=== PATIENT | male | born 2000 | race Caucasian/White ===

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

== ENCOUNTER 2020-08-19 09:48 | Emergency (ER) | payer BC ==
[~2020-08-19] VITALS: Ht 190.5 cm; Wt 68.1 kg
[2020-08-19 09:57] VITALS: BP 128/66
--- NOTE | 2020-08-19 10:04 | PHYS DOC ---
Past History Past Medical History: Asthma Past Surgical History: No Surgical History Smoking: Non-smoker Alcohol Use: None Drug Use: None Adult General HPI HPI Patient is a 19-year-old male with past history of asthma presents emergency department for new onset of nausea and vomiting. Patient states that he was tested positive for influenza a week and half ago and since that time has been having mild intermittent flulike illness with fatigue, muscle aches and subject iqra fevers. Also notes that during that time was having episodes of nausea and vomiting. Patient states this is improved until last night when he had 6 episodes of nonbloody nonbilious vomiting. Not associate with any abdominal pain, diarrhea, chest pain, shortness of breath Review of Systems Review of Systems Constitutional: Denies fever or chills [] Eyes: Denies change in visual acuity, redness, or eye pain [] HENT: Denies nasal congestion or sore throat [] Respiratory: Denies cough or shortness of breath [] Cardiovascular: No additional information not addressed in HPI [] GI: Denies abdominal pain, nausea, vomiting, bloody stools or diarrhea [] : Denies dysuria or hematuria [] Musculoskeletal: Denies back pain or joint pain [] Integument: Denies rash or skin lesions [] Neurologic: Denies headache, focal weakness or sensory changes [] Endocrine: Denies polyuria or polydipsia [] All other systems were reviewed and found to be within normal limits, except as documented in this note. Allergies Allergies Allergies Coded Allergies Type Severity Reaction Last Updated Verified aspirin Allergy Unknown 01/12/17 Yes citric acid Allergy Unknown 01/12/17 Yes sodium bicarbonate Allergy Unknown 01/12/17 Yes Physical Exam Physical Exam Constitutional: Well developed, well nourished, no acute distress, non-toxic appearance. [] HENT: Normocephalic, atraumatic, bilateral external ears normal, oropharynx moist, no oral exudates, nose normal. [] Eyes: PERRLA, EOMI, conjunctiva normal, no discharge. [] Neck: Normal range of motion, no tenderness, supple, no stridor. [] Cardiovascular:Heart rate regular rhythm, no murmur [] Lungs & Thorax: Bilateral breath sounds clear to auscultation [] Abdomen: Bowel sounds normal, soft, no tenderness, no masses, no pulsatile ma sses. [] Skin: Warm, dry, no erythema, no rash. [] Back: No tenderness, no CVA tenderness. [] Extremities: No tenderness, no cyanosis, no clubbing, ROM intact, no edema. [] Neurologic: Alert and oriented X 3, normal motor function, normal sensory function, no focal deficits noted. [] Psychologic: Affect normal, judgement normal, mood normal. [] EKG EKG [] Radiology/Procedures Radiology/Procedures [] Heart Score Risk Factors: Risk Factors: DM, Current or recent (<one month) smoker, HTN, HLP, family history of CAD, obesity. Risk Scores: Risk Factors: DM, Current or recent (<one month) smoker, HTN, HLP, family history of CAD, obesity. Course & Med Decision Making Course & Med Decision Making Pertinent Labs and Imaging studies reviewed. (See chart for details) 89-year-old male presenting to emergency department new onset of vomiting without any fever or abdominal pain this was consistent with an acute gastroenteritis. At this time will obtain labs ensure there is no other significant underlying etiology and reevaluate. Dragon Disclaimer Dragon Disclaimer This electronic medical record was generated, in whole or in part, using a voice recognition dictation system. Departure Departure: Impression: Primary Impression: Gastritis Disposition: 01 DC HOME SELF CARE/HOMELESS Condition: GOOD Referrals: PRACHI GIBSON (PCP) Patient Instructions: Gastritis, Adult Additional Instructions: EMERGENCY DEPARTMENT GENERAL DISCHARGE INSTRUCTIONS Thank you for coming to [facility] Emergency Department (ED) today and trusting us with you care. We trust that you had a positive experience in our Emergency Department. If you wish to speak to the department management, you may call the Director at [phone]. YOUR FOLLOW UP INSTRUCTIONS ARE FOLLOWS: 1. Do you have a private Doctor? If you do not have a private doctor, please ask for a resource list of physicians or clinics that may be able to assist you with follow up care. 2. The Emergency Physicain has interpreted your x-rays. The X-Ray specialist will also review them. If there is a change in the findings, you will be notified in 48 hours when at all possible. 3. A lab test or culture has been done, your results will be reviewed and you will be notified if you need a change in treatment. ADDITIONAL INSTRUCTIONS AND INFORMATION: 1. Your care today has been supervised by a physician who is specially trained in emergency care. Many problems require more than one evaluation for a complete diagnosis and treatment. We recommend that you schedule your follow up appointment as recommended to ensure complete treatment of you illness or injury. If you are unable to obtain follow up care and continue to have a problem, or if your condition worsens, we recommend that you return to the ED. 2. We are not able to safely determine your condition over the phone nor are we able to give sound medical advice over the phone. For these safety reasons, if you call for medical advice we will ask you to come to the ED for further evaluation. 3. If you have any questions regarding these discharge instructions please call the ED at [phone]. SAFETY INFORMATION: In the interest of safety, wellness, and injury prevention; we encourage you to wear your sealbelt, if you smoke; quite smoking, and we encourage family to use a pr otective helmet for bicycling and other sporting events that present an increased risk for head injury. IF YOUR SYMPTOMS WORSEN OR NEW SYMPTOMS DEVELOP, OR YOU HAVE CONCERNS ABOUT YOUR CONDITION; OR IF YOUR CONDITION WORSENS WHILE YOU ARE WAITING FOR YOUR FOLLOW UP APPOINTMENT; EITHER CONTACT YOUR PRIMARY CARE DOCTOR, THE PHYSICIAN WHOSE NAME AND NUMBER YOU WERE GIVEN, OR RETURN TO THE ED IMMEDIATELY. Scripts Ondansetron Hcl (ZOFRAN) 4 Mg Tablet 1 TAB PO PRN Q6HRS PRN for NAUSEA, #6 TAB Prov: JACK PADRON MD 08/19/20 JACK PADRON MD Aug 19, 2020 10:03
[2020-08-19] MEDS ORDERED: ONDANSETRON PF 4 MG/2 ML VIAL. IVP ONE (10:15)
[2020-08-19] MEDS ORDERED: IV NORMAL SALINE 1,000ML 1,000 ML IV SCH (10:15)
[2020-08-19] MEDS ORDERED: LIDO:MAALOX 1:1 20 ML SINGLE DOSE. PO ONE (10:15)
[2020-08-19 10:32] LABS: BASO % 1 % (0-3); EOS % 1 % (0-3); HEMATOCRIT 41.8 % (39.0-53.0); HEMOGLOBIN 14.1 g/dL (13.0-17.5); LYMPH # 0.9 x10^3/uL (1.0-4.8); LYMPH % 15 % (24-48); MEAN CORPUSCULAR HEMOGLOBIN 29 pg (25-35); MEAN CORPUSCULAR HGB CONC 34 g/dL (31-37); MEAN CORPUSCULAR VOLUME 85 fL (79-100); MONO # 0.3 x10^3/uL (0.0-1.1); MONO % 5 % (0-9); NEUT # 4.6 x10^3uL (1.8-7.7); NEUT % 79 % (31-73); PLATELET COUNT 259 x10^3/uL (140-400); RED BLOOD COUNT 4.91 x10^6/uL (4.30-5.70); RED CELL DISTRIBUTION WIDTH 12.8 % (11.5-14.5); WHITE BLOOD COUNT 5.8 x10^3/uL (4.0-11.0)
[2020-08-19 10:39] LABS: CALCIUM 8.8 mg/dL (8.5-10.1); CREATININE 1.1 mg/dL (0.7-1.3); GFR 86.2; POTASSIUM 4.1 mmol/L (3.5-5.1)
[2020-08-19 10:46] LABS: ALBUMIN 4.4 g/dL (3.4-5.0); ALBUMIN/GLOBULIN RATIO 1.2 (1.0-1.7); TOTAL BILIRUBIN 0.7 mg/dL (0.2-1.0); TOTAL PROTEIN 8.2 g/dL (6.4-8.2)
[2020-08-19] MEDS ORDERED: ONDA4TAB7 PO (11:17)
== END 2020-08-19 11:26 | disposition home or self-care (01) ==
LOC: ER 09:48
DX: K29.70 Gastritis, unspecified, without bleeding (principal); J45.909 Unspecified asthma, uncomplicated; Z88.8 Allergy status to other drugs, medicaments and biological substances; Z88.6 Allergy status to analgesic agent
CPT/HCPCS: 36415; 80053; 82550; 85025; 96361; 96374; 99283; J2405; J7030

== ENCOUNTER 2020-10-22 16:34 | Emergency (ER) | payer BC ==
[~2020-10-22] VITALS: Ht 190.5 cm; Wt 68.2 kg
[~2020-10-22 16:34] MED LIST: ONDA4TAB7 PO
[2020-10-22] MEDS ORDERED: IV NORMAL SALINE 1,000ML 1,000 ML IV ONE ×2 (17:15→19:15)
--- NOTE | 2020-10-22 17:31 | EKG ---
[address] [address] Test Date: 2020-10-22 Test Time: 17:21:16 Pat Name: SOBEIDA BERGMAN Department: Room: Gender: M Quality Engineer Medical Device: SACHA : 2000 Requested By: CESAR CALDERÓN Order Number: [id number] Reading MD: Measurements Intervals Maud Rate: 101 P: 26 IN: 158 QRS: 72 QRSD: 88 T: 53 QT: 304 QTc: 395 Interpretive Statements SINUS TACHYCARDIA NO SPECIFIC ECG ABNORMALITIES RI6.02 No previous ECG available for comparison
[2020-10-22 18:01] LABS: BASO % 0 % (0-3); EOS # 0.1 x10^3/uL (0.0-0.7); EOS % 1 % (0-3); HEMATOCRIT 42.5 % (39.0-53.0); HEMOGLOBIN 14.5 g/dL (13.0-17.5); LYMPH # 0.7 x10^3/uL (1.0-4.8); LYMPH % 5 % (24-48); MEAN CORPUSCULAR HEMOGLOBIN 30 pg (25-35); MEAN CORPUSCULAR HGB CONC 34 g/dL (31-37); MEAN CORPUSCULAR VOLUME 87 fL (79-100); MONO # 0.7 x10^3/uL (0.0-1.1); MONO % 5 % (0-9); NEUT # 13.1 x10^3uL (1.8-7.7); NEUT % 90 % (31-73); PLATELET COUNT 209 x10^3/uL (140-400); RED BLOOD COUNT 4.88 x10^6/uL (4.30-5.70); RED CELL DISTRIBUTION WIDTH 13.4 % (11.5-14.5); WHITE BLOOD COUNT 14.7 x10^3/uL (4.0-11.0)
--- NOTE | 2020-10-22 18:05 | RAD ---
EXAM: CT HEAD WITHOUT CONTRAST. HISTORY: Fall, trauma. TECHNIQUE: Computed tomography of the head was performed without intravenous contrast. One or more of the following individualized dose reduction techniques were utilized for this examination: 1. Automated exposure control. 2. Adjustment of the mA and/or kV according to patient size. 3. Use of iterative reconstruction technique. COMPARISON: None. FINDINGS: There is no intracranial hemorrhage. Brown-white differentiation is preserved. The ventricle s are normal in size and position. The visualized paranasal sinuses appear clear. The orbits are unremarkable. The temporal bones are un remarkable. The calvarium reveals no suspicious lesions. IMPRESSION: 1. No acute intracranial findings. Electronically signed by: Angelique Rabago MD (10/22/2020 6:03 PM) [facility]
--- NOTE | 2020-10-22 18:05 | RAD ---
EXAM: CHEST ONE VIEW. HISTORY: Shortness of breath. COMPARISON: None. FINDINGS: A frontal view of the chest is obtained. There are no confluent infiltrates. There is no pneumothorax or pleural effusion. The heart is not en larged. There is a mild thoracic dextrocurvature. IMPRESSION: 1. No confluent infiltrates. Electronically signed by: Angelique Rabago MD (10/22/2020 6:02 PM) [facility]
[2020-10-22 18:06] LABS: BILIRUBIN,URINE NEG (NEG); CLARITY,URINE CLEAR; COLOR,URINE STRAW; GLUCOSE,URINE NEG (NEG)
[2020-10-22 18:07] LABS: BACTERIA,URINE 0 /HPF (0-FEW); NITRITE,URINE NEG (NEG); RBC,URINE 0 /HPF (0-2); UROBILINOGEN,URINE 0.2 mg/dL (0.2 mg/dL); WBC,URINE 0 /HPF (0-4)
[2020-10-22 18:08] LABS: CALCIUM 8.9 mg/dL (8.5-10.1); CREATININE 1.1 mg/dL (0.7-1.3); GFR 86.2; POTASSIUM 3.8 mmol/L (3.5-5.1)
[2020-10-22 18:14] LABS: ALBUMIN 4.7 g/dL (3.4-5.0); ALBUMIN/GLOBULIN RATIO 1.3 (1.0-1.7); TOTAL BILIRUBIN 0.8 mg/dL (0.2-1.0); TOTAL PROTEIN 8.3 g/dL (6.4-8.2)
--- NOTE | 2020-10-22 18:47 | PHYS DOC ---
Past History Past Medical History: GERD, Migraines (CESAR CALDERÓN APRN) Past Surgical History: No Surgical History (CESAR CALDERÓN APRN) Smoking: Non-smoker Alcohol Use: None Drug Use: None (CESAR CALDERÓN APRN) General Adult EDM: Chief Complaint: FATIGUE HPI: HPI: Patient is a 19-year-old male who presents with fever, cough, shortness of breath, headache and 2 syncopal episodes at work. Patient states that he was at work today when he was climbing down some stairs and had a syncopal episode. Patient states that his coworker said he missed the last 3 stairs and fell to the ground. Witnessed denies patient hitting his head. Patient states he did lose consciousness. Patient states he felt weak and fell 1 other time at work as well. Patient denies losing consciousness at that time. Patient has a history of migraines. Patient reports taking his migraine medication this morning before work. Denies taking anything else for pain or fever. Patient has history of migraines, GERD. (CESAR CALDERÓN APRN) Review of Systems: Review of Systems: Constitutional: Denies fever or chills Eyes: Reports some blurry vision HENT: Denies nasal congestion or sore throat Respiratory: Reports nonproductive cough and shortness of breath Cardiovascular: Denies chest pain or edema GI: Denies abdominal pain, nausea, vomiting, bloody stools or diarrhea : Denies dysuria Musculoskeletal: Denies back pain or joint pain Integument: Denies rash Neurologic: Reports headache, denies focal weakness or sensory changes Endocrine: Denies polyuria or polydipsia Lymphatic: Denies swollen glands Psychiatric: Denies depression or anxiety (CESAR CALDERÓN APRN) Current Medications: Current Meds: Current Medications Medications (Trade) Dose Ordered Sig/Guy Start Time Stop Time Status Last Admin Dose Admin Sodium Chloride 1,000 ml @ 1,000 mls/hr 1X ONCE 10/22/20 17:15 10/22/20 18:14 DC 10/22/20 17:15 1,000 MLS/HR (CESAR CALDERÓN APRN) Allergies: Allergies: Allergies Coded Allergies Type Severity Reaction Last Updated Verified Penicillins Allergy Unknown 08/19/20 Yes aspirin Allergy Unknown 01/12/17 Yes citric acid Allergy Unknown 01/12/17 Yes sodium bicarbonate Allergy Unknown 01/12/17 Yes (CESAR CALDERÓN VICE PRESIDENT UNDERWRITING) Physical Exam: PE: Constitutional: Well developed, well nourished, no acute distress, non-toxic appearance. [] HENT: Normocephalic, atraumatic, bilateral external ears normal, oropharynx moist, no oral exudates, nose normal. [] Eyes: PERRLA, EOMI, conjunctiva normal, no discharge. [] Neck: Normal range of motion, no tenderness, supple, no stridor. [] Cardiovascular: Sinus tachycardia, no murmur [] Lungs & Thorax: Bilateral breath sounds clear to auscultation [] Abdomen: Bowel sounds normal, soft, no tenderness, no masses, no pulsatile masses. [] Skin: Warm, dry, no erythema, no rash. [] Back: No tenderness, no CVA tenderness. [] Extremities: No tenderness, no cyanosis, no clubbing, ROM intact, no edema. [] Neurologic: Alert and oriented X 3, normal motor function, normal sensory function, no focal deficits noted. [] Psychologic: Affect normal, judgement normal, mood normal. [] (CESAR CALDERÓN VICE PRESIDENT UNDERWRITING) Current Patient Data: Labs: Laboratory Tests Test 10/22/20 17:20 White Blood Count 14.7 x10^3/uL (4.0-11.0) H Red Blood Count 4.88 x10^6/uL (4.30-5.70) Hemoglobin 14.5 g/dL (13.0-17.5) Hematocrit 42.5 % (39.0-53.0) Mean Corpuscular Volume 87 fL (79-100) Mean Corpuscular Hemoglobin 30 pg (25-35) Mean Corpuscular Hemoglobin Concent 34 g/dL (31-37) Red Cell Distribution Width 13.4 % (11.5-14.5) Platelet Count 209 x10^3/uL (140-400) Neutrophils (%) (Auto) 90 % (31-73) H Lymphocytes (%) (Auto) 5 % (24-48) L Monocytes (%) (Auto) 5 % (0-9) Eosinophils (%) (Auto) 1 % (0-3) Basophils (%) (Auto) 0 % (0-3) Neutrophils # (Auto) 13.1 x10^3uL (1.8-7.7) H Lymphocytes # (Auto) 0.7 x10^3/uL (1.0-4.8) L Monocytes # (Auto) 0.7 x10^3/uL (0.0-1.1) Eosinophils # (Auto) 0.1 x10^3/uL (0.0-0.7) Basophils # (Auto) 0.0 x10^3/uL (0.0-0.2) D-Dimer (Valeria) < 0.19 mg/L (0.00-0.50) Urine Collection Type Unknown Urine Color Straw Urine Clarity Clear Urine pH 8.5 Urine Specific [place] 1.020 Urine Protein Neg (NEG-TRACE) Urine Glucose (UA) Neg mg/dL (NEG) Urine Ketones (Stick) Neg mg/dL (NEG) Urine Blood Neg (NEG) Urine Nitrite Neg (NEG) Urine Bilirubin Neg (NEG) Urine Urobilinogen Dipstick 0.2 mg/dL (0.2 mg/dL) Urine Leukocyte Esterase Neg (NEG) Urine RBC 0 /HPF (0-2) Urine WBC 0 /HPF (0-4) Urine Squamous Epithelial Cells None /LPF Urine Bacteria 0 /HPF (0-FEW) Sodium Level 140 mmol/L (136-145) Potassium Level 3.8 mmol/L (3.5-5.1) Chloride Level 103 mmol/L (98-107) Carbon Dioxide Level 28 mmol/L (21-32) Anion Gap 9 (6-14) Blood Urea Nitrogen 13 mg/dL (8-26) Creatinine 1.1 mg/dL (0.7-1.3) Estimated GFR (Cockcroft-Gault) 86.2 BUN/Creatinine Ratio 12 (6-20) Glucose Level 96 mg/dL (70-99) Lactic Acid Level 1.5 mmol/L (0.4-2.0) Calcium Level 8.9 mg/dL (8.5-10.1) Total Bilirubin 0.8 mg/dL (0.2-1.0) Aspartate Amino Transferase (AST) 19 U/L (15-37) Alanine Aminotransferase (ALT) 25 U/L (16-63) Alkaline Phosphatase 83 U/L (46-116) Total Protein 8.3 g/dL (6.4-8.2) H Albumin 4.7 g/dL (3.4-5.0) Albumin/Globulin Ratio 1.3 (1.0-1.7) Vital Signs: Vital Signs Date Time Temp Pulse Resp B/P (MAP) Pulse Ox O2 Delivery O2 Flow Rate FiO2 10/22/20 16:50 99.7 104 18 123/71 (88) 99 Room Air (CESAR CALDERÓN APRN) EKG: EKG: [] (CESAR CALDERÓN APRN) Radiology/Procedures: Radiology/Procedures: []EXAM: CT HEAD WITHOUT CONTRAST. HISTORY: Fall, trauma. TECHNIQUE: Computed tomography of the head was performed without intravenous contrast. One or more of the following individualized dose reduction techniques were utilized for this examination: 1. Automated exposure control. 2. Adjustment of the mA and/or kV according to patient size. 3. Use of iterative reconstruction technique. COMPARISON: None. FINDINGS: There is no intracranial hemorrhage. Brown-white differentiation is preserved. The ventricles are normal in size and position. The visualized paranasal sinuses appear clear. The orbits are unremarkable. The temporal bones are unremarkable. The calvarium reveals no suspicious lesions. IMPRESSION: 1. No acute intracranial findings. Electronically signed by: Angelique Rabago MD (10/22/2020 6:03 PM) [facility]ERSah[facility] EXAM: CHEST ONE VIEW. HISTORY: Shortness of breath. COMPARISON: None. FINDINGS: A frontal view of the chest is obtained. There are no confluent infiltrates. There is no pneumothorax or pleural effusion. The heart is not enlarged. There is a mild thoracic dextrocurvature. IMPRESSION: 1. No confluent infiltrates. Electronically signed by: Angelique Rabago MD (10/22/2020 6:02 PM) [facility]ALS[facility]on[facility]ERSahra (CESAR CALDERÓN APRN) Heart Score: C/O Chest Pain: No Risk Factors: Risk Factors: DM, Current or recent (<one month) smoker, HTN, HLP, family history of CAD, obesity. Risk Scores: Score 0 - 3: 2.5% MACE over next 6 weeks - Discharge Home Score 4 - 6: 20.3% MACE over next 6 weeks - Admit for Clinical Observation Score 7 - 10: 72.7% MACE over next 6 weeks - Early Invasive Strategies (CESAR CALDERÓN APRN) Course & Med Decision Making: Course & Med Decision Making Pertinent Labs and Imaging studies reviewed. (See chart for details) [] Patient presents emergency room with fever, nonproductive cough, migraine, shortness of breath. Patient reports symptoms started today. Patient states that he had a syncopal episode while at work. Patient reports that he was coming down some stairs, when he started feeling weak and was told he had passed out by his coworker. Denies hitting his head, denies neck pain. Patient is neurologically intact. Patient ambulated on his own in the emergency room. IV fluids given due to tachycardia, dehydration. White count 14.7. All other labs unremarkable. D-dimer is negative. UA is negative for infection. CT of head is negative. Chest x-ray is negative. Patient given Toradol, Benadryl, Zofran to treat migraine. Patient given a second bag of fluids for rehydration. Patient still sinus tach, 110 bpm. Patient's heart rate has improved after second bag of fluids. Migraine has improved after Toradol, Benadryl, Zofran. Patient instructed to return to emergency room with worsening symptoms or concerns. To follow-up with PCP next week. Patient is hemodynamically stable. Patient is able to ambulate out of the emergency room. Informed patient we will call him tomorrow with results from Covid test. Patient is to self quarantine. Patient is given a work note for 3 days. (CESAR CALDERÓN APRN) Dragon Disclaimer: Dragon Disclaimer: This electronic medical record was generated, in whole or in part, using a voice recognition dictation system. (CESAR CALDERÓN APRN) Attending Co-Sign The patient was seen and interviewed as well as examined at the bedside. The chart was reviewed. The case was discussed. Agree with the plan of care. (LAI FRANKEL DO) Departure Departure: Impression: Primary Impression: Migraine Qualified Codes: G43.909 - Migraine, unspecified, not intractable, without status migrainosus Additional Impression: Cough Disposition: 01 HOME / SELF CARE / HOMELESS Condition: STABLE Referrals: PRACHI GIBSON (PCP) Patient Instructions: Migraine Headache, [id number] Additional Instructions: You were seen in the emergency room for cough, fever, migraine. The CT of your head was negative for any intracranial bleeding or abnormalities. Your chest x- ray was negative for any acute abnormalities. All of your lab work was unremarkable. Continue to take your preventative migraine medication at home. Can also take ibuprofen and Tylenol for discomfort. Please return the emergency room with worsening symptoms or concerns. EMERGENCY DEPARTMENT GENERAL DISCHARGE INSTRUCTIONS Thank you for coming to [facility] (ED) today and trusting us with you care. We trust that you had a positivie experience in our Emergency Department. If you wish to speak to the department management, you may call the director at [phone]. YOUR FOLLOW UP INSTRUCTIONS ARE FOLLOWS: 1. Do you have a private Doctor? If you do not have a private doctor, please ask for a resource list of physicians or clinics that may be able to assist you with follow up care. 2. The Emergency Physician has interpreted your x-rays. The X-Ray specialist will also review them. If there is a change in the findings, you will be notified in 48 hours when at all possible. 3. A lab test or culture has been done, your results will be reviewed and you will be notified if you need a change in treatment. ADDITIONAL INSTRUCTIONS AND INFORMATION: 1. Your care today has been supervised by a physician who is specially trained in emergency care. Many problems require more than one evaluation for a complete diagnosis and treatment. We recommend that you schedule your follow up appointment as recommended to ensure complete treatment of you illness or injury. If you are unable to obtain follow up care and continue to have a problem, or if your condition worsens, we recommend that you return to the ED. 2. We are not able to safely determine your condition over the phone nor are we able to give sound medical advice over the phone. For these safety reasons, if you call for medical advice we will ask you to come to the ED for further evaluation. 3. If you have any questions regarding these discharge instructions please call the ED at [phone]. SAFETY INFORMATION: In the interest of safety, wellness, and injury prevention; we encourage you to wear your sealbelt, if you smoke; quite smoking, and we encourage family to use a protective helmet for bicycling and other sporting events that present an increased risk for head injury. IF YOUR SYMPTOMS WORSEN OR NEW SYMPTOMS DEVELOP, OR YOU HAVE CONCERNS ABOUT YOUR CONDITION; OR IF YOUR CONDITION WORSENS WHILE YOU ARE WAITING FOR YOUR FOLLOW UP APPOINTMENT; EITHER CONTACT YOUR PRIMARY CARE DOCTOR, THE PHYSICIAN WHOSE NAME AND NUMBER YOU WERE GIVEN, OR RETURN TO THE ED IMMEDIATELY. CESAR CALDERÓN APRN Oct 22, 2020 18:47 LAI FRANKEL DO Oct 23, 2020 06:13
[2020-10-22] MEDS ORDERED: KETOROLAC 15 MG/ML VIAL. IVP ONE (19:15)
[2020-10-22] MEDS ORDERED: diphenhydrAMINE 50 MG/ML VIAL IVP ONE (19:15)
[2020-10-22] MEDS ORDERED: ONDANSETRON PF 4 MG/2 ML VIAL. IVP ONE (19:15)
[2020-10-22 20:00] VITALS: BP 112/68
== END 2020-10-22 20:27 | disposition home or self-care (01) ==
LOC: ER 16:34
DX: G43.909 Migraine, unspecified, not intractable, without status migrainosus (principal); R05 Cough; R55 Syncope and collapse; K21.9 Gastro-esophageal reflux disease without esophagitis; Z20.822 Contact with and (suspected) exposure to COVID-19; Z88.0 Allergy status to penicillin; Z88.6 Allergy status to analgesic agent; Z88.8 Allergy status to other drugs, medicaments and biological substances
CPT/HCPCS: 36415; 70450; 71045; 80053; 81001; 83605; 85025; 85379; 93005; 96361; 96374; 96375; 99285; J1200; J1885; J2405; J7030; U0003; C9803; U0005

== ENCOUNTER 2021-02-17 03:18 | Emergency (ER) | payer BC ==
[~2021-02-17] VITALS: Ht 190.5 cm; Wt 75.2 kg
[2021-02-17] MEDS ORDERED: ONDANSETRON ODT 4 MG TAB.RAPDIS PO ONE (03:45)
[2021-02-17] MEDS ORDERED: ONDA4TAB7 PO (03:46)
--- NOTE | 2021-02-17 03:46 | PHYS DOC ---
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 States that about 3 to 4 hours ago he was at work, started feeling nauseous and over the last hour has had 3 episodes of nonbloody nonbilious emesis. 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 Denies any headaches, fevers, chest pain, shortness of breath, cough, abdominal pain, dysuria, hematuria, diarrhea or blood in the stool. States he had not tried to eat or drink anything because he has been nauseous. Review of Systems Review of Systems Review of systems otherwise unremarkable except noted in HPI Current Medications Current Medications Current Medications Medications (Trade) Dose Ordered Sig/Guy Start Time Stop Time Status Last Admin Dose Admin Ondansetron HCl (Zofran Odt) 8 mg 1X ONCE 02/17/21 03:45 02/17/21 03:46 Allergies Allergies Allergies Coded Allergies Type Severity Reaction Last Updated Verified Penicillins Allergy Unknown 08/19/20 Yes aspirin Allergy Unknown 01/12/17 Yes citric acid Allergy Unknown 01/12/17 Yes sodium bicarbonate Allergy Unknown 01/12/17 Yes Physical Exam Physical Exam Constitutional: Well developed, well nourished, no acute distress, non-toxic appearance. [] HENT: Normocephalic, atraumatic, oropharynx moist, no oral exudates, nose normal. [] Eyes: conjunctiva normal, no discharge. [] Cardiovascular:Heart rate regular rhythm, no murmur [] Lungs & Thorax: Bilateral breath sounds clear to auscultation [] Abdomen: soft, no tenderness, no masses, no pulsatile masses. [] Skin: Warm, dry, no erythema, no rash. [] Back: no CVA tenderness. [] Extremities: No tenderness, ROM intact, no edema. [] Neurologic: Alert and oriented X 3, no focal deficits noted. [] Psychologic: Affect normal, judgement normal, mood normal. [] Current Patient Data Vital Signs Vital Signs Date Time Temp Pulse Resp B/P (MAP) Pulse Ox O2 Delivery O2 Flow Rate FiO2 02/17/21 03:33 97.9 71 18 139/76 98 Room Air EKG EKG [] Radiology/Procedures Radiology/Procedures [] Heart Score C/O Chest Pain: No Risk Factors: Risk Factors: DM, Current or recent (<one month) smoker, HTN, HLP, family history of CAD, obesity. Risk Scores: Risk Factors: DM, Current or recent (<one month) smoker, HTN, HLP, family history of CAD, obesity. Course & Med Decision Making Course & Med Decision Making Patient is a 20-year-old male who presents with nausea vomiting Vital signs not concerning. Physical exam noted above. Patient given Zofran. On reassessment patient able to take p.o. liquids without issue. Discussed all findings with patient. Advised on management at home with antiemetics. Advised on possible other symptoms that could arise. Advised on diet over the next couple of days and advised to stay at home while he has symptoms as to not spread any illness that he may have. Advised to call primary care physician first thing Friday morning. Gave return precautions to the ED. Patient grateful, verbalized understanding and agreed with plan of discharge. Dragon Disclaimer Dragon Disclaimer This electronic medical record was generated, in whole or in part, using a voice recognition dictation system. Departure Departure: Impression: Primary Impression: Nausea & vomiting Disposition: 01 HOME / SELF CARE / HOMELESS Condition: GOOD Referrals: PRACHI GIBSON (PCP) Patient Instructions: Nausea and Vomiting Additional Instructions: Thank you for coming into the emergency department tonight and allowing us to take care of you. Please read the attached information carefully to go back over what we discussed. Please adjust your diet as we discussed over the next couple of days to something light and clear starting with just liquid over the next 12 hours or so and then advance as tolerated. Please take your nausea medicine as prescribed whether you are feeling nauseous or not over the next couple of days to allow you to take in fluids. Please call your primary care physician first thing Friday to update on your ED visit. Please come back to the ED with new or concerning symptoms as discussed. Scripts Ondansetron Hcl (ZOFRAN) 4 Mg Tablet 2 TAB PO Q8HRS PRN for NAUSEA for 3 Days, #18 TAB Prov: JAQUELIN CREWS MD 02/17/21 JAQUELIN CREWS MD Feb 17, 2021 03:46
[2021-02-17 04:26] VITALS: BP 133/57
== END 2021-02-17 04:26 | disposition home or self-care (01) ==
LOC: ER 03:18
DX: R11.2 Nausea with vomiting, unspecified (principal); K21.9 Gastro-esophageal reflux disease without esophagitis; Z88.0 Allergy status to penicillin; Z88.6 Allergy status to analgesic agent
CPT/HCPCS: 99283; Q0162

== ENCOUNTER 2021-03-09 16:55 | Emergency (ER) | payer BC ==
[~2021-03-09] VITALS: Ht 190.5 cm; Wt 75.2 kg
[2021-03-09 17:31] VITALS: BP 150/67
--- NOTE | 2021-03-09 18:15 | PHYS DOC ---
Past History Past Medical History: GERD, Migraines Additional Past Medical Histor: SMA (DANIA RODNEY APRN) Past Surgical History: No Surgical History (DANIA RODNEY APRN) Smoking: Non-smoker Alcohol Use: None Drug Use: None (DANIA RODNEY APRN) General Adult EDM: Chief Complaint: NAUSEA/VOMITING/DIARRHEA HPI: HPI: Patient is a 20-year-old male being seen in the ER for chronic nausea, vomiting and abdominal pain. 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 He is scheduled to have surgery at [facility] in a week. He states that he suffers from chronic nausea/vomiting and abdominal pain. He has been taking 4 mg of Zofran ODT every 6 hours along with Zantac without any relief in symptoms. Patient states that he vomits when he tries to eat food. Patient is reporting generalized abdominal pain. The pain does not radiate. He rates it 6 out of 10. He denies any diarrhea, fevers, blood in stool or vomit. (DANIA RODNEY APRN) Review of Systems: Review of Systems: 14 body systems of the review of systems have been reviewed. See HPI for pertinent positive and negative responses, otherwise all other systems are negative, nonpertinent or noncontributory (DANIA RODNEY APRN) Current Medications: Current Meds: Current Medications Medications (Trade) Dose Ordered Sig/Guy Start Time Stop Time Status Last Admin Dose Admin Diphenhydramine HCl (Benadryl) 25 mg 1X ONCE 03/09/21 18:15 03/09/21 18:16 UNV Fentanyl Citrate (Fentanyl 2ml Vial) 50 mcg 1X ONCE 03/09/21 18:15 03/09/21 18:16 UNV Prochlorperazine Edisylate (Compazine) 10 mg 1X ONCE 03/09/21 18:15 03/09/21 18:16 UNV (DANIA RODNEY APRN) Allergies: Allergies: Allergies Coded Allergies Type Severity Reaction Last Updated Verified Penicillins Allergy Unknown 08/19/20 Yes aspirin Allergy Unknown 01/12/17 Yes citric acid Allergy Unknown 01/12/17 Yes sodium bicarbonate Allergy Unknown 01/12/17 Yes (DANIA RODNEY APRN) Physical Exam: PE: Constitutional: Well developed, well nourished, no acute distress, non-toxic appearance. [] HENT: Normocephalic, atraumatic, bilateral external ears normal, oropharynx moist, no oral exudates, nose normal. [] Eyes: PERRL, EOMI, conjunctiva normal, no discharge. [] Neck: Normal range of motion, no stridor Cardiovascular:Heart rate regular rhythm, no murmur [] Lungs & Thorax: Bilateral breath sounds clear to auscultation [] Abdomen: Bowel sounds normal, soft, generalized abdominal tenderness with palpation, no rebound tenderness, negative Rovsing sign negative Salazar sign, no masses, no pulsatile masses. [] Skin: Warm, dry, no erythema, no rash. [] Back: Normal range of motion Extremities: No tenderness, no cyanosis, no clubbing, ROM intact, no edema. [] Neurologic: Alert and oriented X 3, normal motor function, normal sensory functi on, no focal deficits noted. [] Psychologic: Affect normal, judgement normal, mood normal. [] (DANIA RODNEY APRN) Current Patient Data: Vital Signs: Vital Signs Date Time Temp Pulse Resp B/P (MAP) Pulse Ox O2 Delivery O2 Flow Rate FiO2 03/09/21 17:31 98.1 76 18 150/67 (94) 97 Room Air (DANIA RODNEY APRN) EKG: EKG: [] (DANIA RODNEY APRN) Radiology/Procedures: Radiology/Procedures: [] (DANIA RODNEY APRN) Heart Score: C/O Chest Pain: No Risk Factors: Risk Factors: DM, Current or recent (<one month) smoker, HTN, HLP, family history of CAD, obesity. Risk Scores: Score 0 - 3: 2.5% MACE over next 6 weeks - Discharge Home Score 4 - 6: 20.3% MACE over next 6 weeks - Admit for Clinical Observation Score 7 - 10: 72.7% MACE over next 6 weeks - Early Invasive Strategies (DANIA RODNEY APRN) Course & Med Decision Making: Course & Med Decision Making Pertinent Labs and Imaging studies reviewed. (See chart for details) [] Patient is a 20-year-old male being seen in the ER for chronic nausea, vomiting and abdominal pain due to his superior mesenteric artery syndrome. Patient is scheduled for surgery at [facility] next week. I discussed possible work-up in the ER with patient. He states that he does not want any lab work or imaging performed because he already had it done recently prior to surgery. He was scheduled for surgery this week but due to the number of surgical cases, it was delayed until next week. He states that he only needs nausea medication and pain medication. Patient currently takes 4 mg Zofran ODT every 6 hours with Zantac. Patient treated in the ER with Compazine, Benadryl, Fentanyl. He declined any IV fluids stating that he does not think he is dehydrated. His vital signs are stable. His physical exam is reassuring. Patient is not actively vomiting. He reports improvement in his symptoms following medication in the ER. He states he would like to go home because he is sleepy. Patient to be discharged home with Compazine. He was advised to discontinue taking the Zofran. Patient discharged home with pain medication. Patient advised to follow-up with his primary care provider on Friday. I discussed with patient all findings as well as the need to follow-up with PCP for further evaluation and treatment or return to the ER if any new or worsening symptoms. Strict return precautions were also discussed at length. Patient voiced understanding and agreement with the plan. Patient is hemodynamically stable at the time of disposition. (DANIA RODNEY APRN) Dragon Disclaimer: Sandra Disclaimer: This electronic medical record was generated, in whole or in part, using a voice recognition dictation system. (DANIA RODNEY APRN) Departure Departure: Impression: Primary Impression: Chronic nausea Additional Impression: Chronic abdominal pain Disposition: HOME / SELF CARE / HOMELESS Condition: GOOD Referrals: PRACHI GIBSON (PCP) Patient Instructions: Nausea and Vomiting Additional Instructions: You were seen in the ER for chronic nausea, vomiting and abdominal pain. You were treated in the ER with nausea medication. We discussed potential work-up in the ER with blood work and CT imaging but you declined. You will be discharged home with Compazine that you can take for nausea. If you are taking Compazine do not take any Zofran with the medication. You are also being discharged home with pain medication. Please be aware that this medication may cause constipation. This medication contains hydrocodone also may cause dr kala. Do not take this medication when you need to be alert and do not take it with alcohol. You should follow-up with your primary care provider or your GI doctor on Friday. Increase your fluid intake. Advance your diet as tolerated but avoid spicy, greasy or fatty foods. If you develop worsening of your abdominal pain, intractable nausea or vomiting, blood in your stools or vomit, high fevers refractory to treatment or any new or worsening concerns please return to the ER. EMERGENCY DEPARTMENT GENERAL DISCHARGE INSTRUCTIONS Thank you for coming to [facility] (ED) today and trusting us with you care. We trust that you had a positivie experience in our Emergency Department. If you wish to speak to the department management, you may call the director at [phone]. YOUR FOLLOW UP INSTRUCTIONS ARE FOLLOWS: 1. Do you have a private Doctor? If you do not have a private doctor, please ask for a resource list of physicians or clinics that may be able to assist you with follow up care. 2. The Emergency Physician has interpreted your x-rays. The X-Ray specialist will also review them. If there is a change in the findings, you will be notified in 48 hours when at all possible. 3. A lab test or culture has been done, your results will be reviewed and you will be notified if you need a change in treatment. ADDITIONAL INSTRUCTIONS AND INFORMATION: 1. Your care today has been supervised by a physician who is specially trained in emergency care. Many problems require more than one evaluation for a complete diagnosis and treatment. We recommend that you schedule your follow up appointment as recommended to ensure complete treatment of you illness or injury. If you are unable to obtain follow up care and continue to have a problem, or if your condition worsens, we recommend that you return to the ED. 2. We are not able to safely determine your condition over the phone nor are we able to give sound medical advice over the phone. For these safety reasons, if you call for medical advice we will ask you to come to the ED for further evaluation. 3. If you have any questions regarding these discharge instructions please call the ED at [phone]. SAFETY INFORMATION: In the interest of safety, wellness, and injury prevention; we encourage you to wear your sealbelt, if you smoke; quite smoking, and we encourage family to use a protec tive helmet for bicycling and other sporting events that present an increased risk for head injury. IF YOUR SYMPTOMS WORSEN OR NEW SYMPTOMS DEVELOP, OR YOU HAVE CONCERNS ABOUT YOUR CONDITION; OR IF YOUR CONDITION WORSENS WHILE YOU ARE WAITING FOR YOUR FOLLOW UP APPOINTMENT; EITHER CONTACT YOUR PRIMARY CARE DOCTOR, THE PHYSICIAN WHOSE NAME AND NUMBER YOU WERE GIVEN, OR RETURN TO THE ED IMMEDIATELY. Scripts Hydrocodone Bit/Acetaminophen (HYDROCODONE-APAP 5-325 ) 1 Each Tablet 1 TAB PO PRN Q6HRS PRN for PAIN for 3 Days, #12 TAB 0 Refills Prov: DANIA RODNEY APRN 03/09/21 Prochlorperazine Maleate (Compazine) 10 Mg Tablet 1 TAB PO Q6HRS for nausea for 3 Days, #12 TAB 0 Refills Prov: DANIA RODNEY APRN 03/09/21 Attending Signature Attending Signature I have participated in the care of this patient and I have reviewed and agree with all pertinent clinical information above including history, exam, and recommendations. (DAYA NEWELL MD) DANIA RODNEY APRN Mar 09, 2021 18:15 DAYA NEWELL MD Mar 12, 2021 06:26
[2021-03-09] MEDS ORDERED: PROC10TA57 PO (18:27)
[2021-03-09] MEDS ORDERED: HYDR-2155 PO (18:27)
[2021-03-09] MEDS ORDERED: diphenhydrAMINE 50 MG/ML VIAL IVP ONE (18:45)
[2021-03-09] MEDS ORDERED: PROCHLORPERAZINE 10 MG/2 ML VIAL. IV ONE (18:45)
== END 2021-03-09 18:56 | disposition home or self-care (01) ==
LOC: ER 16:55
DX: G89.29 Other chronic pain (principal); R11.0 Nausea; R10.84 Generalized abdominal pain; R11.2 Nausea with vomiting, unspecified; K21.9 Gastro-esophageal reflux disease without esophagitis; G43.909 Migraine, unspecified, not intractable, without status migrainosus; Z88.0 Allergy status to penicillin; Z88.6 Allergy status to analgesic agent; Z88.8 Allergy status to other drugs, medicaments and biological substances
CPT/HCPCS: 96374; 96375; 99284; J0780; J1200; J3010

== ENCOUNTER 2021-03-15 06:47 | Emergency (ER) | payer BC ==
[~2021-03-15] VITALS: Ht 190.5 cm; Wt 76.3 kg
[~2021-03-15 06:47] MED LIST changes: +HYDR-2155 PO; +PROC10TA57 PO
[2021-03-15 07:09] VITALS: BP 148/74
[2021-03-15] MEDS ORDERED: PROCHLORPERAZINE 10 MG/2 ML VIAL. IV ONE (07:15)
--- NOTE | 2021-03-15 07:22 | PHYS DOC ---
Past History Past Medical History: GERD, Migraines Additional Past Medical Histor: SMA SYNDROME Past Surgical History: No Surgical History Smoking: Non-smoker Alcohol Use: None Drug Use: None General Adult EDM: Chief Complaint: NAUSEA/VOMITING/DIARRHEA HPI: HPI: Patient is a 20 year old male with a history for SMA syndrome for the last 4 years who presents with an exacerbation of his SMA syndrome. States that he has had vomiting and nausea accompanied by abdominal pain since 2 AM. Took his home Compazine which did not help his nausea. He vomited on 2 occasions, large volume. No blood in his emesis. No diarrhea. Pain is in the midline throughout his abdomen. Similar to previous painful episodes. He has a surgery scheduled for next week on 03/21 at [facility]. States that this has had to be pushed back several times. 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 No fevers or chills. Review of Systems: Review of Systems: Constitutional: Denies fever or chills Eyes: Denies change in visual acuity HENT: Denies nasal congestion or sore throat Respiratory: Denies cough or shortness of breath Cardiovascular: Denies chest pain or edema GI: Reports abdominal pain, nausea, vomiting. : Denies dysuria Musculoskeletal: Denies back pain or joint pain Integument: Denies rash Neurologic: Denies headache, focal weakness or sensory changes Endocrine: Denies polyuria or polydipsia Lymphatic: Denies swollen glands Psychiatric: Denies depression or anxiety Current Medications: Current Meds: Current Medications Medications (Trade) Dose Ordered Sig/Guy Start Time Stop Time Status Last Admin Dose Admin Fentanyl Citrate (Fentanyl 2ml Vial) 75 mcg 1X ONCE 03/15/21 07:15 03/15/21 07:16 Prochlorperazine Edisylate (Compazine) 10 mg 1X ONCE 03/15/21 07:15 03/15/21 07:16 Allergies: Allergies: Allergies Coded Allergies Type Severity Reaction Last Updated Verified Penicillins Allergy Unknown 08/19/20 Yes aspirin Allergy Unknown 01/12/17 Yes citric acid Allergy Unknown 01/12/17 Yes sodium bicarbonate Allergy Unknown 01/12/17 Yes Physical Exam: PE: Constitutional: Well developed, well nourished, no acute distress, non-toxic appearance. [] HENT: Normocephalic, atraumatic, bilateral external ears normal, oropharynx moist, no oral exudates, nose normal. [] Eyes: PERRLA, EOMI, conjunctiva normal, no discharge. [] Neck: Normal range of motion, no tenderness, supple, no stridor. [] Cardiovascular:Heart rate regular rhythm, no murmur [] Lungs & Thorax: Bilateral breath sounds clear to auscultation [] Abdomen: Soft, nondistended, mild tenderness diffusely. No focal tenderness. [] Skin: Warm, dry, no erythema, no rash. [] Back: No tenderness, no CVA tenderness. [] Extremities: No tenderness, no cyanosis, no clubbing, ROM intact, no edema. [] Neurologic: Alert and oriented X 3, normal motor function, normal sensory function, no focal deficits noted. [] Psychologic: Affect normal, judgement normal, mood normal. [] Current Patient Data: Vital Signs: Vital Signs Date Time Temp Pulse Resp B/P (MAP) Pulse Ox O2 Delivery O2 Flow Rate FiO2 03/15/21 07:09 97.7 82 18 148/74 (98) 95 EKG: EKG: [] Radiology/Procedures: Radiology/Procedures: [] Heart Score: C/O Chest Pain: No Risk Factors: Risk Factors: DM, Current or recent (<one month) smoker, HTN, HLP, family history of CAD, obesity. Risk Scores: Score 0 - 3: 2.5% MACE over next 6 weeks - Discharge Home Score 4 - 6: 20.3% MACE over next 6 weeks - Admit for Clinical Observation Score 7 - 10: 72.7% MACE over next 6 weeks - Early Invasive Strategies Course & Med Decision Making: Course & Med Decision Making Pertinent Labs and Imaging studies reviewed. (See chart for details) Patient is a 20-year-old male with a 4-year history of SMA syndrome who presents with what he states is a classic exacerbation of his SMA syndrome. He has been having these much more frequently over the past several months and was last seen in the ED on 03/09 for a similar presentation. At that point he deferred the labs and IV rehydration, and asked only for antiemetics and pain medication. His pain improved and he was discharged. Similarly, today he declines diagnostic work-up including labs. Fortunately, he is overall well- appearing with normal vital signs. We will treat with the Compazine and fentanyl which worked well for him last week. Will attempt p.o. challenge and discharge home if symptoms are well controlled. He will continue to follow-up with his outpatient providers including his perspective surgeons at [facility]. 0720 Patient is feeling much improved. Is requesting discharge at this time. We will follow up with his surgeons as scheduled. 0814 Sandra Disclaimer: Sadnra Disclaimer: This electronic medical record was generated, in whole or in part, using a voice recognition dictation system. Departure Departure: Impression: Primary Impression: Superior mesenteric artery syndrome Additional Impression: Vomiting Disposition: 01 HOME / SELF CARE / HOMELESS Condition: STABLE Referrals: PRACHI GIBSON (PCP) Additional Instructions: Please take your medications as prescribed. Please continue to follow-up with your surgeons as scheduled. If you develop fever/chills, worsening abdominal pain, or other new/concerning symptoms you can return to the emergency department at any time for reevaluation. NIGEL FERRARO MD Mar 15, 2021 07:22
== END 2021-03-15 08:43 | disposition home or self-care (01) ==
LOC: ER 06:47
DX: K55.1 Chronic vascular disorders of intestine (principal); R11.2 Nausea with vomiting, unspecified; K21.9 Gastro-esophageal reflux disease without esophagitis; Z88.0 Allergy status to penicillin; Z88.6 Allergy status to analgesic agent
CPT/HCPCS: 96374; 96375; 99284; J0780; J3010

== ENCOUNTER 2021-06-30 13:04 | Emergency (ER) | payer BC ==
[~2021-06-30] VITALS: Ht 190.5 cm; Wt 76.3 kg
[2021-06-30] MEDS ORDERED: IBUPROFEN 600 MG TABLET. PO ONE (13:45)
[2021-06-30] MEDS ORDERED: IPRATROPIUM BROMIDE 0.5 MG/2.5 ML NEBU. ONE (13:57)
[2021-06-30] MEDS ORDERED: ALBUTEROL SULFATE 2.5 MG/3 ML NEBU. ONE (13:58)
[2021-06-30 14:46] LABS: INFLUENZA A PATIENT NEGATIVE (NEGATIVE); INFLUENZA B PATIENT NEGATIVE (NEGATIVE)
--- NOTE | 2021-06-30 14:54 | RAD ---
Exam Date: 06/30/2021 1:40 PM XR CHEST 1V Indication: Reason: CHEST PAIN WITH INSPIRATION / Spl. Instructions: / History: . Comparison: October 22, 2020 FINDINGS/ IMPRESSION: The cardiac silhouette and pulmonary vasculature are within normal limits. There is no focal consolidation, pleural effusion or pneumothorax. The visualized osseous structures are intact. Electronically signed by: Greg Lyn MD (06/30/2021 2:51 PM) TAVIA
--- NOTE | 2021-06-30 15:03 | PHYS DOC ---
Past History Past Medical History: GERD, Migraines Additional Past Medical Histor: SMA SYNDROME Past Surgical History: No Surgical History Smoking: Non-smoker Alcohol Use: Occasionally Drug Use: None Adult General Chief Complaint Chief Complaint: CHEST PAIN HPI HPI Patient is a 20-year-old male reports to the emergency department complaining of pain to the right anterior chest wall when he takes a deep breath, denies pain when his normal breathing or shallow breathing, patient reports this started about an hour and a half after reporting to work today. 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 Patient denies cough, fever or chills, shortness of breath, chest or nasal congestion, sore throat, loss of taste or loss of smell, reports receiving the COVID-19 virus vaccination series, denies contact with known COVID-19 virus persons. Patient denies other physical complaints or physical concerns. Patient reports he has not taking any [id number] medications or tried nonpharmacological pain techniques for his chest wall discomfort. Review of Systems Review of Systems 14 body systems of review of systems have been reviewed. See HPI for pertinent positives and negative responses, otherwise all other systems are negative, nonpertinent or noncontributory. Constitutional: Negative except as outlined in HPI above. Skin: Negative except as outlined in HPI above. Eyes: Negative except as outlined in HPI above. HENT: Negative except as outlined in HPI above. Respiratory: Negative except as outlined in HPI above. Cardiovascular: Negative except as outlined in HPI above. GI: Negative except as outlined in HPI above. : Negative except as outlined in HPI above. Musculoskeletal: Negative except as outlined in HPI above. Integument: Negative except as outlined in HPI above. Neurologic: Negative except as outlined in HPI above. Endocrine: Negative except as outlined in HPI above. Lymphatic: Negative except as outlined in HPI above. Psychiatric: Negative except as outlined in HPI above. Current Medications Current Medications Current Medications Medications (Trade) Dose Ordered Sig/Guy Start Time Stop Time Status Last Admin Dose Admin Albuterol Sulfate (Ventolin) 2.5 mg STK-MED ONCE 06/30/21 13:58 06/30/21 13:58 DC Ibuprofen (Motrin) 600 mg 1X ONCE 06/30/21 13:45 06/30/21 13:54 DC 06/30/21 13:45 600 MG Ipratropium Medon (Atrovent) 0.5 mg STK-MED ONCE 06/30/21 13:57 06/30/21 13:57 DC Allergies Allergies Allergies Coded Allergies Type Severity Reaction Last Updated Verified Penicillins Allergy Unknown 08/19/20 Yes aspirin Allergy Unknown 01/12/17 Yes citric acid Allergy Unknown 01/12/17 Yes sodium bicarbonate Allergy Unknown 01/12/17 Yes Physical Exam Physical Exam Constitutional: Well developed, well nourished, no acute distress, non-toxic appearance. 20-year-old male in no apparent distress. HENT: Normocephalic, atraumatic. Eyes: Conjunctiva normal, no discharge. Neck: Normal range of motion, no stridor. Cardiovascular: No cyanosis appreciated, distal cap refill less than 2 seconds. RRR consultation, cardiac heart sounds S1-S2 to auscultation. Lungs & Thorax: Patient is in no respiratory distress, no audible adventitious lung sounds appreciated. Lung sounds clear to auscultate all lung aggarwal, pain elicited with palpation over the right anterior chest wall. Abdomen: Nontender, no abnormalities noted. Skin: Warm, dry, no erythema, no rash. Back: No tenderness, no deformities. Extremities: No tenderness, no cyanosis, no clubbing, ROM intact, no edema. Neurologic: Alert and oriented X 3, normal motor function, normal sensory function, no focal deficits noted. Psychologic: Affect normal, judgement normal, mood normal. Current Patient Data Vital Signs Vital Signs Date Time Temp Pulse Resp B/P (MAP) Pulse Ox O2 Delivery O2 Flow Rate FiO2 06/30/21 13:12 98.3 95 16 141/71 (94) 97 Room Air Lab Results Laboratory Tests Test 06/30/21 14:09 Influenza Type A (Rapid) Negative (NEGATIVE) Influenza Type B (Rapid) Negative (NEGATIVE) SARS-CoV-2 Antigen (Rapid) Negative (NEGATIVE) EKG EKG EKG performed at 1436 by ED nursing staff shows a normal sinus rhythm without other ectopy, heart rate 85 bpm, ID interval 0.182, QTc interval 0.412, no acute STEMI, no ACS, no acute ischemia appreciated, EKG interpreted by ED attending physician Dr. Yanes. Radiology/Procedures Radiology/Procedures STATUS: REG ER ORD. PHYSICIAN: BRAYDEN CHAN APRN REASON: CHEST PAIN WITH INSPIRATION PROCEDURE: CHEST AP ONLY Exam Date: 06/30/2021 1:40 PM XR CHEST 1V Indication: Reason: CHEST PAIN WITH INSPIRATION / Spl. Instructions: / History: . Comparison: October 22, 2020 FINDINGS/ IMPRESSION: The cardiac silhouette and pulmonary vasculature are within normal limits. There is no focal consolidation, pleural effusion or pneumothorax. The visualized osseous structures are intact. Electronically signed by: Greg Lyn MD (06/30/2021 2:51 PM) [facility] Heart Score C/O Chest Pain: No Risk Factors: Risk Factors: DM, Current or recent (<one month) smoker, HTN, HLP, family history of CAD, obesity. Risk Scores: Risk Factors: DM, Current or recent (<one month) smoker, HTN, HLP, family history of CAD, obesity. Course & Med Decision Making Course & Med Decision Making Pertinent Labs and Imaging studies reviewed. (See chart for details) 20-year-old male, vital signs reviewed, resents emerged from concerning anterior chest wall pain with inspiration. Patient's physical examination is unremarkable, related to patient's explanation of physical symptoms will order rapid flu, rapid Covid, Covid testing by PCR, EKG, chest x-ray. Will give 600 mg ibuprofen for pain. EKG unremarkable, chest x-ray unremarkable, rapid Covid and flu testing negative. Upon reevaluation of the patient, patient remains nontoxic in appearance, no respiratory distress, now reports he is pain-free stating the medication given to him relieved all of his symptoms. Discussed with patient chest wall pain, home care, follow-up with primary care soon, return to ER precautions or concerns, patient gave verbal understanding of and is amenable to ED discharge planning. Discussed with the patient all findings and diagnostic testing as well as the need to follow-up with their primary care provider for further evaluation and treatment or return to the ED if any new or worsening symptoms. Strict return precautions were also discussed at length, the patient voiced understanding and agreement with the discharge planning. The patient was nontoxic in appearance, in no apparent distress, and hemodynamically stable at the time of disposition. Dragon Disclaimer Dragon Disclaimer This electronic medical record was generated, in whole or in part, using a voice recognition dictation system. Departure Departure: Impression: Primary Impression: Chest wall pain Disposition: HOME / SELF CARE / HOMELESS Condition: GOOD Referrals: PRACHI GIBSON (PCP) Patient Instructions: Chest Wall Pain Additional Instructions: You are seen today in the emergency department for chest discomfort with deep inspiration and movement of your upper extremities. This was most consistent with chest wall pain, this can be related to a viral illness, a chest x-ray was performed today did not show any concerning findings for pneumonia or other pulmonary illness, an EKG was done today is reassuring as it is within normal limits and does not show any sign of cardiac disease or abnormalities. As we discussed you were given a 600 mg dose of ibuprofen which you indicated resolved your pain and discomfort while you are here in the emergency department. Your rapid COVID-19 testing and rapid flu testing were negative today. As we discussed, please stay well-hydrated, you may need to take additional bfra-muf-bpecuum dosing of ibuprofen if symptoms return, take as directed, follow-up with your primary care physician for ongoing chest discomfort, return to the emergency department for worsening symptoms or other concerns. Thank you for visiting our Emergency Department. It was a pleasure taking care of you today in the emergency department and we appreciate you trusting us with your care. If any additional problems come up don't hesitate to return to visit us. Please follow up with your primary care provider so they can plan additional care if needed and know about the problem that you had. If symptoms worsen come back to the Emergency Department. Any concerning symptoms that start such as chest pain, shortness of air, weakness or numbness on one side of the body, running high fevers or any other concerning symptoms return to the ER. EMERGENCY DEPARTMENT GENERAL DISCHARGE INSTRUCTIONS Thank you for coming to [facility] (ED) today and trusting us with you care. We trust that you had a positivie experience in our Emergency Department. If you wish to speak to the department management, you may call the director at [phone]. YOUR FOLLOW UP INSTRUCTIONS ARE FOLLOWS: 1. Do you have a private Doctor? If you do not have a private doctor, please ask for a resource list of physicians or clinics that may be able to assist you with follow up care. 2. The Emergency Physician has interpreted your x-rays. The X-Ray specialist will also review them. If there is a change in the findings, you will be notified in 48 hours when at all possible. 3. A lab test or culture has been done, your results will be reviewed and you will be notified if you need a change in treatment. ADDITIONAL INSTRUCTIONS AND INFORMATION: 1. Your care today has been supervised by a physician who is specially trained in emergency care. Many problems require more than one evaluation for a complete diagnosis and treatment. We recommend that you schedule your follow up appointment as recommended to ensure complete treatment of you illness or injury. If you are unable to obtain follow up care and continue to have a problem, or if your condition worsens, we recommend that you return to the ED. 2. We are not able to safely determine your condition over the phone nor are we able to give sound medical advice over the phone. For these safety reasons, if you call for medical advice we will ask you to come to the ED for further evaluation. 3. If you have any questions regarding these discharge instructions please call the ED at [phone]. SAFETY INFORMATION: In the interest of safety, wellness, and injury prevention; we encourage you to wear your sealbelt, if you smoke; quite smoking, and we encourage family to use a protective helmet for bicycling and other sporting events that present an increased risk for head injury. IF YOUR SYMPTOMS WORSEN OR NEW SYMPTOMS DEVELOP, OR YOU HAVE CONCERNS ABOUT YOUR CONDITION; OR IF YOUR CONDITION WORSENS WHILE YOU ARE WAITING FOR YOUR FOLLOW UP APPOINTMENT; EITHER CONTACT YOUR PRIMARY CARE DOCTOR, THE PHYSICIAN WHOSE NAME AND NUMBER YOU WERE GIVEN, OR RETURN TO THE ED IMMEDIATELY. BRAYDEN CHAN APRN Jun 30, 2021 15:03
--- NOTE | 2021-06-30 15:04 | EKG ---
[address] [address] Test Date: 2021-06-30 Test Time: 14:36:44 Pat Name: SOBEIDA BERGMAN Department: Room: Gender: M Hop Worker: SACHA : 2000 Requested By: BRAYDEN CHAN Order Number: [id number] Reading MD: Morgan Warren Measurements Intervals [place] Rate: 85 P: 60 [place]: 182 QRS: 66 QRSD: 94 T: 42 QT: 346 QTc: 412 Interpretive Statements SINUS RHYTHM Electronically Signed On 07-01-2021 10:10:04 MENTAL MEASUREMENTS TEACHER by Morgan Warren
[2021-06-30 15:19] VITALS: BP 121/79
== END 2021-06-30 15:20 | disposition home or self-care (01) ==
LOC: ER 13:04
DX: R07.89 Other chest pain (principal); K21.9 Gastro-esophageal reflux disease without esophagitis; G43.909 Migraine, unspecified, not intractable, without status migrainosus; Z20.822 Contact with and (suspected) exposure to COVID-19; Z88.0 Allergy status to penicillin; Z88.6 Allergy status to analgesic agent; Z88.8 Allergy status to other drugs, medicaments and biological substances
CPT/HCPCS: 71045; 87426; 87804; 93005; 99285; C9803; U0003

== ENCOUNTER 2021-07-18 18:36 | Emergency (ER) | payer BC ==
[~2021-07-18] VITALS: Ht 190.5 cm; Wt 76.3 kg
[2021-07-18 19:48] LABS: INFLUENZA A PATIENT NEGATIVE (NEGATIVE); INFLUENZA B PATIENT NEGATIVE (NEGATIVE)
--- NOTE | 2021-07-18 19:56 | PHYS DOC ---
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 Has no other symptoms. States he likes to get tested about every 3 weeks even if he does not have any symptoms. Review of Systems Review of Systems Review of systems otherwise unremarkable except noted in HPI Allergies Allergies Allergies Coded Allergies Type Severity Reaction Last Updated Verified Penicillins Allergy Unknown 08/19/20 Yes aspirin Allergy Unknown 01/12/17 Yes citric acid Allergy Unknown 01/12/17 Yes sodium bicarbonate Allergy Unknown 01/12/17 Yes Physical Exam Physical Exam Constitutional: Well developed, well nourished, no acute distress, non-toxic appearance. [] HENT: Normocephalic, atraumatic, bilateral external ears normal, oropharynx moist, no oral exudates, nose normal. [] Eyes: conjunctiva normal, no discharge. [] Neck: Normal range of motion, no tenderness, supple, no stridor. [] Cardiovascular:Heart rate regular rhythm, no murmur [] Lungs & Thorax: Bilateral breath sounds clear to auscultation [] Skin: Warm, dry, no erythema, no rash. [] Extremities: No tenderness, no cyanosis, no clubbing, ROM intact, no edema. [] Neurologic: Alert and oriented X 3, normal motor function, normal sensory function, no focal deficits noted. [] Psychologic: Affect normal, judgement normal, mood normal. [] Current Patient Data Vital Signs Vital Signs Date Time Temp Pulse Resp B/P (MAP) Pulse Ox O2 Delivery O2 Flow Rate FiO2 07/18/21 18:43 98.1 74 16 120/70 (87) 99 Room Air Lab Results Laboratory Tests Test 07/18/21 18:58 Influenza Type A (Rapid) Negative (NEGATIVE) Influenza Type B (Rapid) Negative (NEGATIVE) SARS-CoV-2 Antigen (Rapid) Negative (NEGATIVE) EKG EKG [] Radiology/Procedures Radiology/Procedures [] Heart Score C/O Chest Pain: No Risk Factors: Risk Factors: DM, Current or recent (<one month) smoker, HTN, HLP, family history of CAD, obesity. Risk Scores: Risk Factors: DM, Current or recent (<one month) smoker, HTN, HLP, family history of CAD, obesity. Course & Med Decision Making Course & Med Decision Making Patient is a 20-year-old male who presents for a COVID swab Vital signs nonconcerning. Physical exam noted above. COVID swab pending. Discussed symptom management if he begins to have any at home. Advised to follow-up with primary care physician. Gave return precautions to the ED. Patient grateful, verbalized understanding and agreed with plan of discharge. [] Dragon Disclaimer Dragon Disclaimer This electronic medical record was generated, in whole or in part, using a voice recognition dictation system. Departure Departure: Impression: Primary Impression: Person under investigation for COVID-19 Disposition: HOME / SELF CARE / HOMELESS Condition: GOOD Referrals: PRACHI GIBSON (PCP) Patient Instructions: Viral Syndrome Additional Instructions: You have been tested for or diagnosed with COVID-19. It is an infection caused by a new type of coronavirus. COVID-19 will cause cold-like or mild flu symptoms in most. It can cause more severe symptoms like problems breathing in some. There is no treatment for COVID-19. The body will clear the infection over time. Self-care will help to ease discomfort. Steps to Take: Self-Care Rest as needed. Healthy habits may help you feel better. Steps include: Choose healthy foods including fruits and vegetables. Drink water throughout the day. Get plenty of sleep each night. If you smoke, try to quit. It may ease breathing. Avoid alcohol. Keep Others Healthy The virus can spread to others. Droplets are released every time you sneeze or cough. The droplets can get into the mouth, nose, or eyes of people near you and lead to in fection. To lower the chances of spreading COVID-19 to others: Stay at home until your doctor has said it is safe to leave. If you tested positive this will mean staying isolated until both of the following are true: At least 7 days have passed since the start of illness. You are free of fever for at least 72 hours without the use of medicine. During this time: - Avoid public areas, events, or transportation. Do not return to work or school until your doctor has said it is safe to do so. - Call ahead if you need to go to a medical center. Let them know you may have COVID-19. It will help them guide you where to go. They may also ask you to wear a facemask when you come to the office. - If you call for emergency medical services, let them know you may have COVID- 19. While at home: - Try to avoid close contact with others. Stay about 6 feet away. - If possible, spend most of your time in a separate room from others. - Use a face mask if you will be in close contact with others such as sharing a room or vehicle. - Have someone wipe down common surfaces in the home. Use household dip painter every day on areas like doorknobs, counters, or sinks. - Cough or sneeze into a tissue. Throw the tissue away right after use. If a tissue is not available, cough or sneeze into your elbow. - Wash your hands often. Wash them after sneezing or coughing. Use soap and water and wash for at least 20 seconds. Alcohol based hand bisque cleaner can be used if soap and water is not available. - Do not prepare food for others. Avoid sharing personal items like forks, spoons, or toothbrushes. - Avoid close contact with pets while you are sick. There is no evidence of the virus passing to pets. This is a safety step until more is known about this virus. Isolation can be frustrating. Social interaction can help. Keep in touch with friends and family through phone and tech options. You can still interact with others in your home, just keep a safe distance of about 6 feet. Follow-up: Your doctors office will check in with you to see if there are any changes in your health. You may be asked to keep track of symptoms to share with them. They will also let you know when you are clear to be in public again. Problems to Look Out For: Contact your doctor if your recovery is not going as you expect. Get emergency care if you have problems such as: - Trouble breathing - Nonstop chest pain or pressure - Changes in awareness, confusion, or problems waking - Lips or face have bluish color - Worsening of symptoms If you think you have an emergency, call for emergency medical services right away. As taken from [facility] [place] [facility] DIVISIONJAQUELIN ANDERSEN MD Jul 18, 2021 19:56
[2021-07-18 20:05] VITALS: BP 118/64
== END 2021-07-18 20:08 | disposition home or self-care (01) ==
LOC: ER 18:36
DX: B34.9 Viral infection, unspecified (principal); K21.9 Gastro-esophageal reflux disease without esophagitis; Z20.822 Contact with and (suspected) exposure to COVID-19; Z88.0 Allergy status to penicillin; Z88.6 Allergy status to analgesic agent
CPT/HCPCS: 87428; 99283-25

== ENCOUNTER 2021-07-19 19:02 | Emergency (ER) | payer BC ==
[~2021-07-19] VITALS: Ht 190.5 cm; Wt 80.0 kg
[2021-07-19 19:23] VITALS: BP 141/56
--- NOTE | 2021-07-19 20:08 | EKG ---
[address] [address] Test Date: 2021-07-19 Test Time: 19:48:46 Pat Name: SOBEIDA BERGMAN Department: Room: Gender: M Documentation Manager: : 2000 Requested By: IJEOMA SOL Order Number: [id number] Reading MD: George Meyer MD Measurements Intervals [place] Rate: 88 P: 61 [place]: 182 QRS: 66 QRSD: 94 T: 39 QT: 342 QTc: 417 Interpretive Statements SINUS RHYTHM Electronically Signed On 07-23-2021 9:36:08 HOUSE REPAIRER by George Meyer MD
--- NOTE | 2021-07-19 20:14 | PHYS DOC ---
Past History Past Medical History: GERD, Migraines Additional Past Medical Histor: SMA SYNDROME (IJEOMA SOL) Past Surgical History: Other Additional Past Surgical Histo: colon resection (IJEOMA SOL) Smoking: Non-smoker Alcohol Use: Occasionally Drug Use: None (IJEOMA SOL) General Adult EDM: Chief Complaint: ANXIETY/PANIC ATTACK HPI: HPI: Patient is a 20 year old male who presents with palpitations. Patient states he takes several workout supplements and had over 1000mg of caffeine today. He has also had increased stress and anxiety the past two months. 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 He states he was treated at the [facility] for several years in adolescence for ADHD and ASD. Patient has considered going back for resuming treatment. He denies chest pain, nausea, vomiting, diaphoresis. (IJEOMA SOL) Review of Systems: Review of Systems: ROS negative or noncontributory except as mentioned in HPI. (IJEOMA SOL) Allergies: Allergies: Allergies Coded Allergies Type Severity Reaction Last Updated Verified Penicillins Allergy Unknown 07/19/21 Yes aspirin Allergy Unknown 07/19/21 Yes citric acid Allergy Unknown 07/19/21 Yes sodium bicarbonate Allergy Unknown 07/19/21 Yes (IJEOMA SOL) Physical Exam: PE: Constitutional: Well developed, well nourished, no acute distress, non-toxic appearance. HENT: Normocephalic, atraumatic, bilateral external ears normal, nose normal. Eyes: PERRLA, EOMI, conjunctiva normal, no discharge. Neck: Normal range of motion, no stridor. Cardiovascular: Heart rate regular rhythm, no murmur. Lungs & Thorax: Bilateral breath sounds clear to auscultation. Skin: Warm, dry, no erythema, no rash. Neurologic: Alert and oriented x4, steady and symmetrical gait, no focal deficits noted. Psychologic: Affect anxious, fair judgment. (IJEOMA SOL) Current Patient Data: Vital Signs: Vital Signs Date Time Temp Pulse Resp B/P (MAP) Pulse Ox O2 Delivery O2 Flow Rate FiO2 07/19/21 19:23 98.1 90 16 141/56 (84) 98 Room Air (IJEOMA SOL) EKG: EKG: EKG Interpreted by Dr. Crews: Regular rate and rhythm 88 bpm with no ectopic beats. QT 342 ms/QTc 417 ms. No STEMI. (IJEOMA SOL) Heart Score: C/O Chest Pain: No (IJEOMA SOL) Course & Med Decision Making: Course & Med Decision Making Pertinent Labs and Imaging studies reviewed. (See chart for details) Patient is a 20-year-old male who presents with palpitations after ingesting over 1000 mg caffeine. Patient also reports significant anxiety over the past few months after traumatic event at work. Discussed resuming [facility] the [facility], using work resources for corrections officers or using his [employer] card to call for available therapist in the area to set up appointments. Patient takes several workout supplements. Both nursing staff and myself advised that he seek nutrition help for guidance in which supplements would be beneficial to him and which might harm him secondary to his history of partial colectomy. Patient was given return precautions. He understands and is agreeable to discharge plan. (IJEOMA SOL) Course & Med Decision Making Did not see or evaluate patient. Agree with G[employer]MENT [employer]INGER's work-up and disposition per note. (JAQUELIN CREWS MD) Dragon Disclaimer: Dragon Disclaimer: This electronic medical record was generated, in whole or in part, using a voice recognition dictation system. (IJEOMA SOL) Departure Departure: Impression: Primary Impression: Anxiety Additional Impression: Work-related stress Disposition: HOME / SELF CARE / HOMELESS Condition: IMPROVED Referrals: PRACHI GIBSON (PCP) Patient Instructions: Anxiety and Panic Attacks, [id number] Additional Instructions: EMERGENCY DEPARTMENT GENERAL DISCHARGE INSTRUCTIONS Thank you for coming to [facility] (ED) today and trusting us with you care. We trust that you had a positive experience in our Emergency De partment. If you wish to speak to the department management, you may call the director at [phone]. YOUR FOLLOW UP INSTRUCTIONS ARE FOLLOWS: 1. Follow up with your primary care doctor and/or the guidance center. If you do not have a primary doctor, please ask for a resource list of physicians or clinics that may be able to assist you with follow up care. 2. The emergency provider has interpreted your images. The radiology imaging nurse also reviewed them. If there is a change in the findings, you will be notified in 48 hours when at all possible. 3. A lab test or culture has been done, your results will be reviewed and you will be notified if you need a change in treatment. 4. Follow instructions verbalized to you and refer to the printouts if needed. ADDITIONAL INSTRUCTIONS AND INFORMATION: 1. Your care today has been supervised by a physician who is specially trained in emergency care. Many problems require more than one evaluation for a complete diagnosis and treatment. We recommend that you schedule your follow up appointment as recommended to ensure complete treatment of you illness or injury. If you are unable to obtain follow up care and continue to have a problem, or if your condition worsens, we recommend that you return to the ED. 2. We are not able to safely determine your condition over the phone nor are we able to give sound medical advice over the phone. For these safety reasons, if you call for medical advice we will ask you to come to the ED for further evaluation. 3. If you have any questions regarding these discharge instructions please call the ED at [phone]. SAFETY INFORMATION: In the interest of safety, wellness, and injury prevention; we encourage you to wear your seat belt, if you smoke; quite smoking, and we encourage family to use a protective helmet for bicycling and other sporting events that present an increased risk for head injury. IF YOUR SYMPTOMS WORSEN OR NEW SYMPTOMS DEVELOP, OR YOU HAVE CONCERNS ABOUT YOUR CONDITION; OR IF YOUR CONDITION WORSENS WHILE YOU ARE WAITING FOR YOUR FOLLOW UP APPOINTMENT; EITHER CONTACT YOUR PRIMARY CARE DOCTOR, THE PHYSICIAN WHOSE NAME AND NUMBER YOU WERE GIVEN, OR RETURN TO THE ED IMMEDIATELY. IJEOMA SOL Jul 19, 2021 20:14 JAQUELIN CREWS MD Jul 19, 2021 20:24
== END 2021-07-19 20:20 | disposition home or self-care (01) ==
LOC: ER 19:06
DX: F41.9 Anxiety disorder, unspecified (principal); F43.9 Reaction to severe stress, unspecified; K21.9 Gastro-esophageal reflux disease without esophagitis; G43.909 Migraine, unspecified, not intractable, without status migrainosus
CPT/HCPCS: 93005; 99283

== ENCOUNTER 2021-10-25 15:18 | Emergency (ER) | payer BC ==
[~2021-10-25] VITALS: Ht 190.5 cm; Wt 77.0 kg
[2021-10-25] MEDS ORDERED: ONDANSETRON ODT 4 MG TAB.RAPDIS PO ONE (15:45)
[2021-10-25] MEDS ORDERED: KETOROLAC 60 MG/2 ML VIAL. IM ONE (15:45)
[2021-10-25] MEDS ORDERED: diphenhydrAMINE 50 MG/ML VIAL IM ONE (15:45)
[2021-10-25 15:57] VITALS: BP 131/70
--- NOTE | 2021-10-25 16:20 | PHYS DOC ---
Past History Past Medical History: GERD, Migraines Additional Past Medical Histor: SMA SYNDROME (CESAR CALDERÓN APRN) Past Surgical History: No Surgical History Additional Past Surgical Histo: colon resection (CESAR CALDERÓN APRN) Smoking: Non-smoker Alcohol Use: Occasionally Drug Use: None (CESAR CALDERÓN APRN) General Adult EDM: Chief Complaint: HEADACHE HPI: HPI: Patient is a 20-year-old male presents with migraine headache. Denies nausea/vomiting. Denies visual changes. Denies worst headache of his life or thunderclap. Patient reports taking ibuprofen at 4 AM. Denies relief. Patient states he has a history of migraines. Migraine headache slowly history. (CESAR CALDERÓN APRN) Review of Systems: Review of Systems: ROS At least 10 ROS systems have been reviewed and are negative except as documented in the HPI. General: Negative except as outlined in HPI above. Skin: Negative except as outlined in HPI above. HEENT: Negative except as outlined in HPI above. Neck: Negative except as outlined in HPI above. Respiratory: Negative except as outlined in HPI above.. Cardiovascular: Negative except as outlined in HPI above. Abdomen: Negative except as outlined in HPI above. : Negative except as outlined in HPI above. Back/MSK: Negative except as outlined in HPI above. Neuro: Negative except as outlined in HPI above. Psych: Negative except as outlined in HPI above. (CESAR CALDERÓN APRN) Current Medications: Current Meds: Current Medications Medications (Trade) Dose Ordered Sig/Guy Start Time Stop Time Status Last Admin Dose Admin Diphenhydramine HCl (Benadryl) 25 mg 1X ONCE 10/25/21 15:45 10/25/21 15:46 DC 10/25/21 15:44 25 MG Ketorolac Tromethamine (Toradol Im) 60 mg 1X ONCE 10/25/21 15:45 10/25/21 15:46 DC 10/25/21 15:44 60 MG Ondansetron HCl (Zofran Odt) 4 mg 1X ONCE 10/25/21 15:45 10/25/21 15:46 DC 10/25/21 15:45 4 MG (CESAR CALDERÓN APRN) Allergies: Allergies: Allergies Coded Allergies Type Severity Reaction Last Updated Verified Penicillins Allergy Unknown 10/25/21 Yes aspirin Allergy Unknown 10/25/21 Yes citric acid Allergy Unknown 10/25/21 Yes sodium bicarbonate Allergy Unknown 10/25/21 Yes (CESAR CALDERÓN APRN) Physical Exam: PE: Constitutional: Well developed, well nourished, no acute distress, non-toxic appearance. [] HENT: Normocephalic, atraumatic, bilateral external ears normal, oropharynx moist, no oral exudates, nose normal. [] Eyes: PERRLA, EOMI, conjunctiva normal, no discharge. [] Neck: Normal range of motion, no tenderness, supple, no stridor. [] Cardiovascular:Heart rate regular rhythm, no murmur [] Lungs & Thorax: Bilateral breath sounds clear to auscultation [] Abdomen: Bowel sounds normal, soft, no tenderness, no masses, no pulsatile masses. [] Skin: Warm, dry, no erythema, no rash. [] Back: No tenderness, no CVA tenderness. [] Extremities: No tenderness, no cyanosis, no clubbing, ROM intact, no edema. [] Neurologic: Alert and oriented X 3, normal motor function, normal sensory function, no focal deficits noted. [] Psychologic: Affect normal, judgement normal, mood normal. [] (CESAR CALDERÓN APRN) Current Patient Data: Vital Signs: Vital Signs Date Time Temp Pulse Resp B/P (MAP) Pulse Ox O2 Delivery O2 Flow Rate FiO2 10/25/21 15:57 98.4 68 18 131/70 (90) 98 Room Air (CESAR CALDERÓN APRN) EKG: EKG: [] (CESAR CALDERÓN APRN) Radiology/Procedures: Radiology/Procedures: [] (CESAR CALDERÓN APRN) Heart Score: C/O Chest Pain: No Risk Factors: Risk Factors: DM, Current or recent (<one month) smoker, HTN, HLP, family history of CAD, obesity. Risk Scores: Score 0 - 3: 2.5% MACE over next 6 weeks - Discharge Home Score 4 - 6: 20.3% MACE over next 6 weeks - Admit for Clinical Observation Score 7 - 10: 72.7% MACE over next 6 weeks - Early Invasive Strategies (CESAR CALDERÓN APRN) Course & Med Decision Making: Course & Med Decision Making Pertinent Labs and Imaging studies reviewed. (See chart for details) [] 3-year-old male presents with migraine headaches. Denies nausea and vomiting. No visual changes. Denies worsening of her life or thunderclap. Patient has history of migraines and states that this is the same as normal. Patient given IM Toradol, IM Benadryl, ODT Zofran. Advised patient to follow-up with PCP for further management of future migraines. (CESAR CALDERÓN APRN) Sandra Disclaimer: Sandra Disclaimer: This electronic medical record was generated, in whole or in part, using a voice recognition dictation system. (CESAR CALDERÓN APRN) Attending Co-Sign The patient was seen and interviewed as well as examined at the bedside. The chart was reviewed. The case was discussed. Agree with the plan of care. (LAI FRANKEL DO) Departure Departure: Impression: Primary Impression: Headache Qualified Codes: R51.9 - Headache, unspecified Disposition: HOME / SELF CARE / HOMELESS Condition: STABLE Referrals: PRACHI GIBSON (PCP) Patient Instructions: General Headache Without Cause Additional Instructions: You are seen the emergency room for headache. You were given medications to treat. Ibuprofen at home for pain. Follow-up with PCP for medication for chronic migraines. EMERGENCY DEPARTMENT GENERAL DISCHARGE INSTRUCTIONS Thank you for coming to [facility] (ED) today and trusting us with you care. We trust that you had a positivie experience in our Emergency Department. If you wish to speak to the department management, you may call the director at [phone]. YOUR FOLLOW UP INSTRUCTIONS ARE FOLLOWS: 1. Do you have a private Doctor? If you do not have a private doctor, please ask for a resource list of physicians or clinics that may be able to assist you with follow up care. 2. The Emergency Physician has interpreted your x-rays. The X-Ray specialist will also review them. If there is a change in the findings, you will be notified in 48 hours when at all possible. 3. A lab test or culture has been done, your results will be reviewed and you will be notified if you need a change in treatment. ADDITIONAL INSTRUCTIONS AND INFORMATION: 1. Your care today has been supervised by a physician who is specially trained in emergency care. Many problems require more than one evaluation for a complete diagnosis and treatment. We recommend that you schedule your follow up appointment as recommended to ensure complete treatment of you illness or injury. If you are unable to obtain follow up care and continue to have a problem, or if your condition worsens, we recommend that you return to the ED. 2. We are not able to safely determine your condition over the phone nor are we able to give sound medical advice over the phone. For these safety reasons, if you call for medical advice we will ask you to come to the ED for further evaluation. 3. If you have any questions regarding these discharge instructions please call the ED at [phone]. SAFETY INFORMATION: In the interest of safety, wellness, and injury prevention; we encourage you to wear your sealbelt, if you smoke; quite smoking, and we encourage family to use a protective helmet for bicycling and other sporting events that present an increased risk for head injury. IF YOUR SYMPTOMS WORSEN OR NEW SYMPTOMS DEVELOP, OR YOU HAVE CONCERNS ABOUT YOUR CONDITION; OR IF YOUR CONDITION WORSENS WHILE YOU ARE WAITING FOR YOUR FOLLOW UP APPOINTMENT; EITHER CONTACT YOUR PRIMARY CARE DOCTOR, THE PHYSICIAN WHOSE NAME AND NUMBER YOU WERE GIVEN, OR RETURN TO THE ED IMMEDIATELY. CESAR CALDERÓN APRN Oct 25, 2021 16:20 LAI FRANKEL DO October 29, 2021 06:12
== END 2021-10-25 16:25 | disposition home or self-care (01) ==
LOC: ER 15:18
DX: G43.909 Migraine, unspecified, not intractable, without status migrainosus (principal); K21.9 Gastro-esophageal reflux disease without esophagitis; Z88.0 Allergy status to penicillin; Z88.6 Allergy status to analgesic agent; Z88.8 Allergy status to other drugs, medicaments and biological substances
CPT/HCPCS: 96372; 99284; J1200; J1885; Q0162